=== PATIENT | male | born 2000 | race Hispanic/Latino ===

== ENCOUNTER 2024-11-23 05:41 | Emergency (ER) | payer OTHER ==
[~2024-11-23] VITALS: Ht 175.3 cm; Wt 86.2 kg
--- NOTE | 2024-11-23 05:55 | NUR ---
PATENT TRANSPORTED TO CT
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
--- NOTE | 2024-11-23 06:03 | NUR ---
PATIENT TRANSPORTED BACK FROM CT
--- NOTE | 2024-11-23 06:16 | NUR ---
CONTACTED YONI BURRELL AT THIS TIME, SPOKE TO OFFICER ESTRELLA (BADGE #[id number])
[2024-11-23] MEDS: teTANUS/diphthERIA TOXOID [ADULT] 0.5 ML VIAL IM ONE (06:50)
--- NOTE | 2024-11-23 06:51 | NUR ---
YONI BURRELL AT BEDSIDE
[2024-11-23] MEDS: OCTYL 2-CYANOACRYLATE 1 EACH TP ONE ×2 (06:52→07:37)
[2024-11-23 07:17] VITALS: BP 123/69; PULSE 70; RESP 16; TEMP 98; O2SAT 99
[2024-11-23] MEDS: ketOROlac 30MG VIAL (30MG/ML) IM ONE (07:28)
[2024-11-23] MEDS: ketOROlac 30MG VIAL (30MG/ML) ONE (07:36)
[2024-11-23] MEDS: LIDOCAINE 1%-EPI 1:100,000 20 ML VIAL IJ ONE (07:51)
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
== END 2024-11-23 07:52 | disposition home or self-care (01) ==
LOC: EDH 05:41
DX: T15.12XA Foreign body in conjunctival sac, left eye, initial encounter (principal); H53.149 Visual discomfort, unspecified; W34.010A Accidental discharge of airgun, initial encounter; Y93.89 Activity, other specified; Y92.89 Other specified places as the place of occurrence of the external cause; Y99.8 Other external cause status
CPT/HCPCS: 99285; 70450; 90714; 70486; 96372; 90471; J1885; J3490